=== PATIENT | female | born 2000 | race Two or more races ===

== ENCOUNTER 2022-04-07 14:57 | Emergency (ER) | payer MEDICAID ==
[~2022-04-07] VITALS: Ht 160 cm; Wt 60.9 kg
[2022-04-07 15:35] VITALS: BP 102/61
[2022-04-07] MEDS ORDERED: SUMAtriptan SUCCINATE 6 MG/0.5 ML VL SC ONE (15:45)
[2022-04-07 15:52] LABS: Urine Bacteria FEW /hpf (None Seen); Urine Blood Negative /uL (Negative); Urine Mucus FEW (None Seen); Urine Specific Gravity 1.014 (1.001-1.035); Urine WBC 1 /hpf (0 - 5)
[2022-04-07] MEDS ORDERED: SUMA50TA2 PO (16:33)
== END 2022-04-07 16:39 | disposition home or self-care (01) ==
LOC: ER 14:57
DX: G43.909 Migraine, unspecified, not intractable, without status migrainosus (principal)
CPT/HCPCS: 81001; 81025; 96372; 99283; J3030

== ENCOUNTER 2022-08-11 01:26 | Emergency (ER) | payer MEDICAID ==
[~2022-08-11] VITALS: Ht 160 cm; Wt 64.0 kg
[~2022-08-11 01:26] MED LIST: SUMA50TA2 PO
[2022-08-11 05:22] VITALS: BP 116/63
== END 2022-08-11 05:26 | disposition home or self-care (01) ==
LOC: ER 01:26
DX: S71.112A Laceration without foreign body, left thigh, initial encounter (principal); W26.0XXA Contact with knife, initial encounter; Y93.89 Activity, other specified; Y92.89 Other specified places as the place of occurrence of the external cause; Y99.8 Other external cause status
CPT/HCPCS: 12002